=== PATIENT | female | born 1980 | race Two or more races ===

== ENCOUNTER 2017-07-16 16:59 | Emergency (ER) | payer MEDICAID ==
[~2017-07-16] VITALS: Ht 162.6 cm; Wt 93.4 kg
[2017-07-16 19:37] VITALS: BP 114/84
== END 2017-07-16 21:37 | disposition home or self-care (01) ==
LOC: ER 17:07
DX: M79.605 Pain in left leg (principal); M79.604 Pain in right leg; I10 Essential (primary) hypertension; E03.9 Hypothyroidism, unspecified
CPT/HCPCS: 72100

== ENCOUNTER 2017-08-11 12:55 | Emergency (ER) | payer MEDICAID ==
[~2017-08-11] VITALS: Ht 162.6 cm; Wt 93.9 kg
[2017-08-11 14:00] VITALS: BP 149/95
[2017-08-11] MEDS ORDERED: cefTRIAXone SOD 1,000 MG VL IM ONE (14:45)
== END 2017-08-11 15:00 | disposition home or self-care (01) ==
LOC: ER 12:58
DX: N39.0 Urinary tract infection, site not specified (principal); N76.0 Acute vaginitis; I10 Essential (primary) hypertension
CPT/HCPCS: 96372; 99283; J0696

== ENCOUNTER 2017-08-17 14:28 | Emergency (ER) | payer MEDICAID ==
[~2017-08-17] VITALS: Ht 162.6 cm; Wt 92.1 kg
[2017-08-17 14:30] VITALS: BP 159/108
== END 2017-08-17 17:41 | disposition home or self-care (01) ==
LOC: ER 14:28
DX: R51 Headache (principal); I10 Essential (primary) hypertension

== ENCOUNTER 2017-08-25 15:31 | Emergency (ER) | payer MEDICAID ==
[~2017-08-25] VITALS: Ht 162.6 cm; Wt 91.6 kg
[2017-08-25 16:24] LABS: Basophils # (auto) 0 uL; Basophils % (auto) 0.3 % (0.0-2.0); Eosinophils # (auto) 0.1 uL; Hematocrit 37.1 % (36.0-46.0); Hemoglobin 12.4 g/dL (12.2-16.2); Lymphocytes # (auto) 2.1 uL; Lymphocytes % (auto) 22.1 % (10.0-50.0); Mean Corpuscular Hgb Conc. 33.4 g/dL (32.0-36.0); Mean Corpuscular Volume 83.7 fL (80.0-100.0); Monocytes # (auto) 0.6 uL; Monocytes % (auto) 6.4 % (0.0-12.0); Neutrophils # (auto) 6.6 uL; Neutrophils % (auto) 70.2 % (37.0-80.0); Nucleated Red Blood Cells % 0.1 %; Platelet Count (auto) 331 10^3/uL (140-450); Red Blood Cells 4.44 10^6/uL (4.0-5.20); Red Cell Distribution Width 12.7 % (11.8-14.3); White Blood Cell 9.4 10^3/uL (4.4-10.8)
[2017-08-25 16:45] LABS: Albumin 3.9 g/dL (3.4-5.0); BUN/Creatinine Ratio 10.1; Bilirubin, Total 0.3 mg/dL (0.2-1.0); Calcium 9.4 mg/dL (8.5-10.1); Total Protein 8.1 g/dL (6.4-8.2)
[2017-08-25 17:12] LABS: Urine Bacteria FEW /hpf (None Seen); Urine Blood Negative /uL (Negative); Urine Specific Gravity 1.012 (1.001-1.035); Urine WBC <1 /hpf (0 - 5)
[2017-08-25 18:34] VITALS: BP 132/84
== END 2017-08-25 19:08 | disposition home or self-care (01) ==
LOC: ER 15:34
DX: R10.84 Generalized abdominal pain (principal); R11.2 Nausea with vomiting, unspecified; I10 Essential (primary) hypertension; E07.9 Disorder of thyroid, unspecified; Z98.51 Tubal ligation status
CPT/HCPCS: 36415; 74176; 80053; 81001; 82150; 83690; 85025

== ENCOUNTER 2017-12-15 14:27 | Emergency (ER) | payer MEDICAID ==
[~2017-12-15] VITALS: Ht 162.6 cm; Wt 96.2 kg
[2017-12-15 15:15] LABS: Basophils # (auto) 0 uL; Basophils % (auto) 0.3 % (0.0-2.0); Eosinophils # (auto) 0.1 uL; Eosinophils % (auto) 1.4 % (0.0-7.0); Hematocrit 38.9 % (36.0-46.0); Lymphocytes # (auto) 2.2 uL; Lymphocytes % (auto) 25.2 % (10.0-50.0); Mean Corpuscular Hemoglobin 28.1 pg (28.0-32.0); Mean Corpuscular Hgb Conc. 33.4 g/dL (32.0-36.0); Mean Corpuscular Volume 84.1 fL (80.0-100.0); Monocytes # (auto) 0.6 uL; Monocytes % (auto) 6.3 % (0.0-12.0); Neutrophils # (auto) 5.9 uL; Neutrophils % (auto) 66.8 % (37.0-80.0); Platelet Count (auto) 348 10^3/uL (140-450); Red Blood Cells 4.62 10^6/uL (4.0-5.20); Red Cell Distribution Width 13.7 % (11.8-14.3); White Blood Cell 8.9 10^3/uL (4.4-10.8)
[2017-12-15 15:35] LABS: Alanine Aminotransferase 27 U/L (13-56); Albumin 4.3 g/dL (3.4-5.0); Alkaline Phosphatase 103 U/L (45-117); Anion Gap 4 (5-15); Aspartate Aminotransferase 17 U/L (15-37); Bilirubin, Total 0.6 mg/dL (0.2-1.0); Blood Urea Nitrogen 8 mg/dL (7-18); Calcium 9.7 mg/dL (8.5-10.1); Carbon Dioxide 28 mmol/L (21-32); Chloride 104 mmol/L (98-107); GFR African American 104 mL/min; GFR Non-African American 86 mL/min; Glucose 77 mg/dL (74-106); Sodium 136 mmol/L (136-145)
[2017-12-15 16:02] VITALS: BP 134/92
== END 2017-12-15 16:09 | disposition home or self-care (01) ==
LOC: ER 14:28
DX: I16.0 Hypertensive urgency (principal); I10 Essential (primary) hypertension; F17.210 Nicotine dependence, cigarettes, uncomplicated; Z98.51 Tubal ligation status
CPT/HCPCS: 36415; 80053; 84484; 85025; 93005

== ENCOUNTER 2018-01-21 09:31 | Emergency (ER) | payer MEDICAID ==
[~2018-01-21] VITALS: Ht 162.6 cm; Wt 96.6 kg
[2018-01-21 10:15] LABS: Urine WBC None Seen /hpf (0 - 5)
[2018-01-21 10:30] LABS: Urine Bacteria FEW /hpf (None Seen); Urine Blood Negative /uL (Negative); Urine Specific Gravity 1.007 (1.001-1.035)
[2018-01-21] MEDS ORDERED: SODIUM CHLORIDE 0.9% 1,000 ML IVB ONE (11:06)
[2018-01-21 11:27] LABS: Basophils # (auto) 0 uL; Basophils % (auto) 0.5 % (0.0-2.0); Eosinophils # (auto) 0.1 uL; Eosinophils % (auto) 1.2 % (0.0-7.0); Hematocrit 39.1 % (36.0-46.0); Hemoglobin 12.8 g/dL (12.2-16.2); Lymphocytes # (auto) 1.7 uL; Lymphocytes % (auto) 19.8 % (10.0-50.0); Mean Corpuscular Hemoglobin 27.7 pg (28.0-32.0); Mean Corpuscular Hgb Conc. 32.9 g/dL (32.0-36.0); Mean Corpuscular Volume 84.4 fL (80.0-100.0); Monocytes # (auto) 0.4 uL; Monocytes % (auto) 5.1 % (0.0-12.0); Neutrophils # (auto) 6.3 uL; Neutrophils % (auto) 73.4 % (37.0-80.0); Platelet Count (auto) 350 10^3/uL (140-450); Red Blood Cells 4.63 10^6/uL (4.0-5.20); Red Cell Distribution Width 14.1 % (11.8-14.3); White Blood Cell 8.5 10^3/uL (4.4-10.8)
[2018-01-21 11:44] LABS: Albumin 4.3 g/dL (3.4-5.0); Calcium 9.5 mg/dL (8.5-10.1)
[2018-01-21 11:47] LABS: BUN/Creatinine Ratio 9.7; Bilirubin, Total 0.4 mg/dL (0.2-1.0); Total Protein 9.2 g/dL (6.4-8.2)
[2018-01-21 13:35] VITALS: BP 134/98
== END 2018-01-21 13:41 | disposition home or self-care (01) ==
LOC: ER 09:31
DX: K57.30 Diverticulosis of large intestine without perforation or abscess without bleeding (principal); I10 Essential (primary) hypertension; E07.89 Other specified disorders of thyroid; F17.210 Nicotine dependence, cigarettes, uncomplicated; Z98.51 Tubal ligation status
CPT/HCPCS: 36415; 74176; 80053; 81001; 81025; 85025; 94761; 96360

== ENCOUNTER 2018-01-28 08:19 | Emergency (ER) | payer MEDICAID ==
[~2018-01-28] VITALS: Ht 162.6 cm; Wt 93.4 kg
[2018-01-28] MEDS ORDERED: PANTOPRAZOLE 40 MG TAB PO ONE (09:15)
[2018-01-28 09:22] LABS: Urine Bacteria FEW /hpf (None Seen); Urine Blood TRACE /uL (Negative); Urine Mucus FEW (None Seen); Urine Specific Gravity 1.017 (1.001-1.035); Urine WBC 5 /hpf (0 - 5)
[2018-01-28 09:27] LABS: Basophils # (auto) 0 uL; Basophils % (auto) 0.5 % (0.0-2.0); Eosinophils # (auto) 0.1 uL; Eosinophils % (auto) 1.4 % (0.0-7.0); Hematocrit 35.8 % (36.0-46.0); Hemoglobin 11.9 g/dL (12.2-16.2); Lymphocytes # (auto) 1.1 uL; Lymphocytes % (auto) 13.7 % (10.0-50.0); Mean Corpuscular Hemoglobin 27.5 pg (28.0-32.0); Mean Corpuscular Hgb Conc. 33.2 g/dL (32.0-36.0); Mean Corpuscular Volume 82.9 fL (80.0-100.0); Monocytes # (auto) 0.4 uL; Monocytes % (auto) 5.6 % (0.0-12.0); Neutrophils # (auto) 6.2 uL; Neutrophils % (auto) 78.8 % (37.0-80.0); Platelet Count (auto) 330 10^3/uL (140-450); Red Blood Cells 4.31 10^6/uL (4.0-5.20); Red Cell Distribution Width 13.6 % (11.8-14.3); White Blood Cell 7.9 10^3/uL (4.4-10.8)
[2018-01-28 09:46] LABS: BUN/Creatinine Ratio 6.5; Calcium 8.9 mg/dL (8.5-10.1)
[2018-01-28 09:49] LABS: Bilirubin, Total 0.4 mg/dL (0.2-1.0)
[2018-01-28 10:31] VITALS: BP 136/95
== END 2018-01-28 10:42 | disposition home or self-care (01) ==
LOC: ER 08:26
DX: N39.0 Urinary tract infection, site not specified (principal); F17.210 Nicotine dependence, cigarettes, uncomplicated; I10 Essential (primary) hypertension; E07.89 Other specified disorders of thyroid
CPT/HCPCS: 36415; 80053; 81001; 81025; 85025; 94761

== ENCOUNTER 2018-02-25 09:44 | Emergency (ER) | payer MEDICAID ==
[~2018-02-25] VITALS: Ht 162.6 cm; Wt 86.2 kg
[2018-02-25 10:00] VITALS: BP 143/83
== END 2018-02-25 11:03 | disposition home or self-care (01) ==
LOC: ER 09:44
DX: S20.161A Insect bite (nonvenomous) of breast, right breast, initial encounter (principal); L08.9 Local infection of the skin and subcutaneous tissue, unspecified; I10 Essential (primary) hypertension; E07.89 Other specified disorders of thyroid; F17.210 Nicotine dependence, cigarettes, uncomplicated; W57.XXXA Bitten or stung by nonvenomous insect and other nonvenomous arthropods, initial encounter; Y93.89 Activity, other specified; Y99.8 Other external cause status; Y92.89 Other specified places as the place of occurrence of the external cause

== ENCOUNTER 2018-03-25 10:59 | Emergency (ER) | payer MEDICAID ==
[~2018-03-25] VITALS: Ht 165.1 cm; Wt 87.8 kg
[2018-03-25] MEDS ORDERED: IBU600T (11:31)
[2018-03-25] MEDS ORDERED: LISI-646 (11:31)
[2018-03-25] MEDS ORDERED: LEVO50TA7 (11:31)
[2018-03-25] MEDS ORDERED: MUPI2OIN2 (11:31)
[2018-03-25 12:05] LABS: Basophils # (auto) 0.1 uL; Eosinophils # (auto) 0.1 uL; Mean Corpuscular Hemoglobin 26.4 pg (28.0-32.0); Monocytes # (auto) 0.4 uL
[2018-03-25 12:07] LABS: Basophils % (auto) 0.6 % (0.0-2.0); Eosinophils % (auto) 1.4 % (0.0-7.0); Hematocrit 38.2 % (36.0-46.0); Hemoglobin 12.4 g/dL (12.2-16.2); Lymphocytes # (auto) 1.3 uL; Lymphocytes % (auto) 14.1 % (10.0-50.0); Mean Corpuscular Hgb Conc. 32.6 g/dL (32.0-36.0); Neutrophils # (auto) 7.5 uL; Neutrophils % (auto) 79.9 % (37.0-80.0); Platelet Count (auto) 350 10^3/uL (140-450); Red Blood Cells 4.71 10^6/uL (4.0-5.20); Red Cell Distribution Width 15.3 % (11.8-14.3); White Blood Cell 9.4 10^3/uL (4.4-10.8)
[2018-03-25 12:22] LABS: Urine Pregnacy Test Negative (Negative)
[2018-03-25 12:22] LABS: Albumin 4.2 g/dL (3.4-5.0); Calcium 9.2 mg/dL (8.5-10.1); Potassium 3.8 mmol/L (3.5-5.1)
[2018-03-25 12:24] LABS: Urine Amorphous Crystal FEW /hpf (None Seen); Urine Bacteria NONE SEEN /hpf (None Seen); Urine Blood 2+ /uL (Negative); Urine Specific Gravity 1.002 (1.001-1.035); Urine WBC <1 /hpf (0 - 5)
[2018-03-25 12:25] LABS: BUN/Creatinine Ratio 11.1; Bilirubin, Total 0.4 mg/dL (0.2-1.0); Total Protein 8.5 g/dL (6.4-8.2)
[2018-03-25 12:53] LABS: Alcohol, Urine < 3.0 mg/dL (0-5); Amphetamine Screen, Urine NEGATIVE (NEGATIVE); Barbiturate Scree,Urine NEGATIVE (NEGATIVE); Benzodiazephine Screen, Urine NEGATIVE (NEGATIVE); Cannabinoid Screen, Urine NEGATIVE (NEGATIVE); Cocaine Screen, Urine NEGATIVE (NEGATIVE); Opiate Scree,Urine NEGATIVE (NEGATIVE); Phencyclidine Screen, Urine NEGATIVE (NEGATIVE)
[2018-03-25 15:25] VITALS: BP 132/89
== END 2018-03-25 15:27 | disposition home or self-care (01) ==
LOC: ER 10:59
DX: K29.70 Gastritis, unspecified, without bleeding (principal); K76.0 Fatty (change of) liver, not elsewhere classified; I10 Essential (primary) hypertension; E07.9 Disorder of thyroid, unspecified; F17.210 Nicotine dependence, cigarettes, uncomplicated; Z98.51 Tubal ligation status; Z79.899 Other long term (current) drug therapy
CPT/HCPCS: 36415; 76705; 80053; 80307; 81001; 81025; 82150; 83690; 85025

== ENCOUNTER 2018-07-23 09:04 | Emergency (ER) | payer MEDICAID ==
[~2018-07-23] VITALS: Ht 162.6 cm; Wt 82.6 kg
[~2018-07-23 09:04] MED LIST: IBU600T; LEVO50TA7; LISI-646; MUPI2OIN2
[2018-07-23] MEDS ORDERED: IBUPROFEN 600 MG TAB PO ONE (09:15)
[2018-07-23 09:16] VITALS: BP 123/73
[2018-07-23] MEDS ORDERED: KETOROLAC TROMETH 60MG/2ML VIAL IM ONE (09:45)
[2018-07-23] MEDS ORDERED: ACETAMINOPHEN 325 MG TAB PO ONE (10:00)
== END 2018-07-23 11:00 | disposition home or self-care (01) ==
LOC: ER 09:08
DX: S80.02XA Contusion of left knee, initial encounter (principal); I10 Essential (primary) hypertension; F17.210 Nicotine dependence, cigarettes, uncomplicated; Z79.899 Other long term (current) drug therapy; W01.198A Fall on same level from slipping, tripping and stumbling with subsequent striking against other object, initial encounter; Y93.89 Activity, other specified; Y99.8 Other external cause status
CPT/HCPCS: 73562

== ENCOUNTER 2019-03-18 21:19 | Emergency (ER) | payer MEDICAID ==
[~2019-03-18] VITALS: Ht 165.1 cm; Wt 83.5 kg
[2019-03-18 21:25] VITALS: BP 146/72
[2019-03-18 22:09] LABS: Urine Bacteria MOD /hpf (None Seen); Urine Blood Negative /uL (Negative); Urine Mucus FEW (None Seen); Urine Specific Gravity 1.018 (1.001-1.035); Urine WBC 1 /hpf (0 - 5)
[2019-03-18 23:07] LABS: Basophils # (auto) 0 uL; Basophils % (auto) 0.5 % (0.0-2.0); Eosinophils # (auto) 0.2 uL; Eosinophils % (auto) 2.5 % (0.0-7.0); Hematocrit 36.6 % (36.0-46.0); Hemoglobin 12.3 g/dL (12.2-16.2); Lymphocytes # (auto) 2.2 uL; Lymphocytes % (auto) 25.3 % (10.0-50.0); Mean Corpuscular Hemoglobin 29.6 pg (28.0-32.0); Mean Corpuscular Hgb Conc. 33.6 g/dL (32.0-36.0); Monocytes # (auto) 0.7 uL; Monocytes % (auto) 7.9 % (0.0-12.0); Neutrophils # (auto) 5.6 uL; Neutrophils % (auto) 63.8 % (37.0-80.0); Platelet Count (auto) 288 10^3/uL (140-450); Red Blood Cells 4.16 10^6/uL (4.0-5.20); Red Cell Distribution Width 14.7 % (11.8-14.3); White Blood Cell 8.7 10^3/uL (4.4-10.8)
[2019-03-18 23:21] LABS: Alanine Aminotransferase 19 U/L (13-56); Albumin 3.7 g/dL (3.4-5.0); Anion Gap 7 (5-15); Aspartate Aminotransferase 12 U/L (15-37); BUN/Creatinine Ratio 21.4; Blood Urea Nitrogen 18 mg/dL (7-18); Calcium 8.9 mg/dL (8.5-10.1); Carbon Dioxide 25 mmol/L (21-32); Chloride 106 mmol/L (98-107); GFR African American 98 mL/min; GFR Non-African American 81 mL/min; Glucose 102 mg/dL (74-106); Potassium 3.8 mmol/L (3.5-5.1); Sodium 138 mmol/L (136-145)
[2019-03-18 23:26] LABS: Alkaline Phosphatase 69 U/L (45-117); Bilirubin, Total 0.3 mg/dL (0.2-1.0); Total Protein 7.5 g/dL (6.4-8.2)
== END 2019-03-19 | disposition left against medical advice (07) ==
LOC: ER 21:19
DX: R07.89 Other chest pain (principal); Z53.21 Procedure and treatment not carried out due to patient leaving prior to being seen by health care provider
CPT/HCPCS: 36415; 70450; 80053; 81001; 84484; 85025; 93005

== ENCOUNTER 2019-04-13 12:20 | Emergency (ER) | payer MEDICAID ==
[~2019-04-13] VITALS: Ht 162.6 cm; Wt 90.7 kg
[2019-04-13 12:39] VITALS: BP 115/71
== END 2019-04-13 15:15 | disposition home or self-care (01) ==
LOC: ER 12:20
DX: M54.6 Pain in thoracic spine (principal); I10 Essential (primary) hypertension; F17.210 Nicotine dependence, cigarettes, uncomplicated; Z79.899 Other long term (current) drug therapy

== ENCOUNTER 2024-10-11 19:47 | Emergency (ER) | payer MEDICAID ==
[~2024-10-11] VITALS: Ht 165.1 cm; Wt 86.3 kg
[~2024-10-11 19:47] MED LIST changes: -IBU600T; +IBUP1TAB5; -LISI-646; +LISI20TA56
--- NOTE | 2024-10-11 19:57 | ED.PDOC ---
History of Present Illness HPI Comments 43-year-old female brought in by EMS presents with a chief complaint of pre- syncope, constipation, and urinary retention. Patient states that she almost had a syncopal episode, but did not fully lose consciousness. Patient was caught by her friend and did not hit her head. Patient reports that she has not had a bowel movement or urinated for x 1 week. Patient mentions that she is able to pass gas. Patient endorses using methamphetamine, marijuana, cigarettes, and alcohol use. Last time she used was this morning. No fall or trauma. No real syncope it maybe near-syncope. PMHx: HTN, Hypothyroidism, UTIs PSHx: , Tubal Ligation HPI: Poor Historian. REVIEW OF SYSTEMS: CONSTITUTIONAL: Denies acute: fever, diaphoresis, chills, HEAD: Denies acute: headache, photophobia Eyes: Denies acute: Double vision, vision loss, eye pain, eye discharge. EARS: Denies acute: tinnitus, hearing loss, ear discharge, ear pain, THROAT: Denies acute: sore throat, swelling, difficulty swallowing , pain with swallowing, change in voice. Obese NECK: Denies acute: neck pain, neck swelling, stiff neck. HEART: Denies acute : chest pain, palpitations, LUNGS: Denies acute: SOB, wheezing, cough, hemoptysis ABDOMEN: Denies acute: Nausea, Vomiting, diarrhea, melena , hematemesis, hematochezia SKIN: Denies acute: rash, redness, lesions, itchiness. EXTREMITIES: Denies acute: calf pain, numbness, tingling, weakness, denies pain in extremity. Denies acute: Low back pain. Neuro: Denies acute: focal neurological deficit, motor or sensory focal neurological deficit, tremors, seizure like activity, confusion, change in mental status, loss of bowel or bladder function, cauda equina like symptoms. : Denies acute: dysuria, hematuria, flank pain, increase in urinary frequency. PSYCH: Denies acute: hallucination, suicidal ideation, homicidal ideation. FEMALE: Denies acute: abnormal vaginal bleeding, foul odor, unusual discharge. Currently on her menstrual cycle PHYSICAL EXAM: General: ----mild----acute distress, awake and alert. Head: normocephalic, atraumatic. Neck: supple, trachea is midline, no swelling. Throat: Normal phonation. Eyes:, no erythema, no purulent discharge, no proptosis, no icterus. Heart: regular rate, regular rhythm, no significant murmur appreciated. Lungs: no apparent respiratory distress, Able to speak in full sentences. No wheezing, no rhonchi, no crackles. No stridors Clear to auscultation bilaterally. Abdomen: non tender to palpation, non distended, soft, no guarding, no rebound, + bowel sounds. Neuro: Awake, Alert, oriented to name, self, situation, follows commands GCS=15. Speech is normal. Skin: no petechia, no purpura, no cyanosis, non-pale, not jaundice. Lower extremities: --no - Pitting edema no deformity, no focal swelling, no calf TTP. Makes eye contact. moves all four extremities. Face: no apparent facial droop. ED COURSE: DISCLAIMER: This medical document was created using an electronic medical record system with voice recognition software and computerized dictation system. Although this document has been carefully reviewed, there might still be some phonetic and typographical errors. Occasional wrong-word or "sound-alike" substitutions may have occurred due to the inherent limitations of voice recognition software. These areas are purely typographical due to imperfections of the software programs and do not reflect any compromise in the patient's medical care. Please read the chart carefully and recognize, using context, where these substitutions have occurred. Time Seen by MD: 19:48 Primary Care Provider: LAYLA Reviewed Notes: Medications, Allergies Allergies: Coded Allergies: No Known Drug Allergy (Verified Allergy, Unknown, 10/11/24) Home Meds Reported Medications Mupirocin (Pseudomonas Fluores (Mupirocin) 2 % Oin 03/25/18 Ibuprofen Micronized (Ibuprofen) 600 Mg Tab 03/25/18 Lisinopril (Lisinopril) 20 Mg Tab 03/25/18 Levothyroxine Sodium (Levothyroxine Sodium) 50 Mcg Tab 03/25/18 Information Source: Patient, Emergency Med Personnel Past Medical History PAST MEDICAL HISTORY: HTN, Thyroid, UTI'S Surgical History: , Tubal Ligation Family History Family History: No family hx of HTN Social History Smoker: Cigarettes, Less Than 1 Pack/Day Alcohol: Occasionally Drugs: Marijuana, Methamphetamine Lives In: Home Was a procedure done? Was a procedure done?: No X-Ray, Labs, Meds, VS Vital Signs Date Time Temp Pulse Resp B/P (MAP) Pulse Ox O2 Delivery O2 Flow Rate FiO2 10/11/24 20:41 Room Air* 0 21 10/11/24 20:41 97.5 90 18 162/90 (114) 98 97.5 10/11/24 20:00 97.9 101 20 155/85 (108) 98 97.9 10/11/24 19:54 103 Lab Test 10/11/24 20:56 10/11/24 20:01 Range/Units Urine Color Light-yellow Yellow Urine Clarity Turbid H Clear Urine pH 6.0 5.0-9.0 Urine Specific [place] 1.019 1.001-1.035 Urine Protein Negative Negative Urine Ketones Negative Negative Urine Blood Negative Negative /uL Urine Nitrite 2+ H Negative Urine Bilirubin Negative Negative Urine Urobilinogen Normal Negative mg/dL Urine Leukocyte Esterase 3+ Negative /uL Urine RBC 3 0 - 4 /hpf Urine Microscopic WBC 115 H 0-5 /HPF Urine Squamous Epithelial Cells Few <5 /hpf Urine Bacteria Few H None Seen /hpf Urine Mucus Few None Seen Urine Glucose Normal Normal mg/dL Urine Test Negative Negative Troponin I High Sensitivity 4 4 </=34 ng/L Urine Opiates Screen Pending Urine Fentanyl Screen Pending Urine Barbiturates Screen Pending Urine Phencyclidine Screen Pending Urine Amphetamines Screen Pending Urine Benzodiazepines Screen Pending Urine Cocaine Screen Pending Urine Cannabinoids Screen Pending White Blood Count 6.8 4.4-10.8 10^3/uL Red Blood Count 4.64 4.0-5.20 10^6/uL Hemoglobin 11.7 L 12.2-16.2 g/dL Hematocrit 36.1 36.0-46.0 % Mean Corpuscular Volume 77.8 L 80.0-100.0 fL Mean Corpuscular Hemoglobin 25.3 L 28.0-32.0 pg Mean Corpuscular Hemoglobin Concent 32.5 32.0-36.0 g/dL Red Cell Distribution Width 17.4 H 11.8-14.3 % Platelet Count 433 140-450 10^3/uL Mean Platelet Volume 6.9 6.9-10.8 fL Neutrophils (%) (Auto) 51.7 37.0-80.0 % Lymphocytes (%) (Auto) 37.5 10.0-50.0 % Monocytes (%) (Auto) 6.8 0.0-12.0 % Eosinophils (%) (Auto) 3.2 0.0-7.0 % Basophils (%) (Auto) 0.8 0.0-2.0 % Neutrophils # (Auto) 3.5 1.6-8.6 10 ^3/uL Lymphocytes # (Auto) 2.6 0.4-5.4 10 ^3/uL Monocytes # (Auto) 0.5 0-1.3 10 ^3/uL Eosinophils # (Auto) 0.2 0-0.8 10 ^3/uL Basophils # (Auto) 0.1 0-0.2 10 ^3/uL Nucleated Red Blood Cells 0.0 % Sodium Level 141 136-145 mmol/L Potassium Level 3.5 3.5-5.1 mmol/L Chloride Level 105 98-107 mmol/L Carbon Dioxide Level 29 20-31 mmol/L Anion Gap 7 5-15 Blood Urea Nitrogen 9 9-23 mg/dL Creatinine 0.99 0.550-1.02 mg/dL Glomerular Filtration Rate Calc 73 >90 mL/min BUN/Creatinine Ratio 9.1 L 10.0-20.0 Serum Glucose 116 H 74-106 mg/dL Lactic Acid Level 1.7 0.4-2.0 mmol/L Calcium Level 11.1 H 8.7-10.4 mg/dL Magnesium Level 2.1 1.6-2.6 mg/dL Total Bilirubin 0.3 0.2-1.0 mg/dL Aspartate Amino Transferase (AST) 16 13-40 U/L Alanine Aminotransferase (ALT) 11 7-40 U/L Alkaline Phosphatase 98 46-116 U/L B-Type Natriuretic Peptide 12.86 0-100 pg/mL Total Protein 7.4 5.7-8.2 g/dL Albumin 4.8 3.2-4.8 g/dL Current Medications Medications (Trade) Dose Ordered Sig/Jeb Route Start Time Stop Time Status Last Admin Sodium Chloride 1,000 ml @ 1,000 mls/hr Q1H ONCE IV 10/11/24 20:00 10/11/24 20:59 DC 10/11/24 20:40 Sodium Chloride 1,000 ml @ 1,000 mls/hr Q1H ONCE IV 10/11/24 20:45 10/11/24 21:44 DC 10/11/24 20:45 [place] [id number] Ph: [phone] DIAGNOSTIC IMAGING Diagnostic Imaging Report : [id number] Signed PATIENT: MANOHAR LEONARDO ACCT: [id number] UNIT: [id number] : 1980 LOC: ER ROOM / BED: / AGE / SEX: 43 / F ADM STATUS: REG ER SERVICE 51 ORDERING PHYSICIAN: IZABELLA MALIK DO PROCEDURE(s): CXRP - CHEST PORTABLE REASON: near syncope ORDER NUMBER(s): [id number], ACCESSION NUMBER(s): [id number] CHEST RADIOGRAPH Indication: near syncope Technique: Single frontal view of the chest was obtained Comparison: None FINDINGS: Lines and Tubes: None Lungs: No focal consolidation. Pleura: No effusion. No pneumothorax. Cardiomediastinal contours: Unremarkable Bones: No acute osseous abnormality. IMPRESSION: 1. No acute cardiopulmonary disease. ATED BY: AMY VERDUZCO Jr., DO DICTATED DATE/TIME: 10/11/242040 SIGNED BY: AMY VERDUZCO Jr., SIGNED DATE/TIME: 10/11/242040 [place] [address] Ph: [phone] DIAGNOSTIC IMAGING Diagnostic Imaging Report : [id number] Signed PATIENT: MANOHAR LEONARDO ACCT: [id number] UNIT: [id number] : 1980 LOC: ER ROOM / BED: / AGE / SEX: 43 / F ADM STATUS: REG ER SERVICE 51 ORDERING PHYSICIAN: IZABELLA MALIK DO PROCEDURE(s): ABPL - CT AB PEL WO CON-NO ORAL OR IV REASON: constipation ORDER NUMBER(s): [id number], ACCESSION NUMBER(s): [id number] Exam: CT CT AB PEL WO CON-NO ORAL OR IV History: constipation Comparison Study: None TECHNIQUE: Multidetector CT of the abdomen was performed from lung bases to pubic symphysis. Imaging was performed without IV contrast. Axial, coronal and sagittal multiplanar reformats were obtained from the axial data set by the technologist. Radiation Dose Information: CT Dose: CTDI volume is 9.02 mGy. Dose-length product is 546.39 mGy*cm FINDINGS: Evaluation of solid organs is limited due to lack of intravenous contrast use. Findings: Lung Bases: No acute or significant lung base finding. Normal heart size. No pleural or pericardial effusion. Liver: The liver is normal in size. No focal lesions. Gallbladder and Biliary Tree: Gallstones Spleen: Unremarkable Pancreas: The pancreas is grossly normal in appearance. Adrenal Glands: Unremarkable Kidneys: Kidneys are grossly normal without calculi or hydronephrosis. Bladder: Grossly unremarkable for degree of distention. Bowel: The stomach is grossly normal in appearance. Small bowel and colon are normal in caliber and distribution. The appendix is not visualized; however, no secondary findings of acute appendicitis identified. Ascites: Absent Lymphadenopathy: No mesenteric, retroperitoneal or periportal lymphadenopathy. Abdominal Wall and Mesentery: Unremarkable. Vasculature: The visualized abdominal aorta is normal in size and caliber. Evaluation of abdominal and pelvic vessels is limited due to lack of intravenous contrast. Pelvic Organs: Unremarkable Musculoskeletal: No aggressive focal bony lesions, acute fractures or dislocation. Soft tissues: Unremarkable IMPRESSION: 1. Gallstones 2. Tampon in the vagina. Radiation optimization: All CT scans at this facility use at least one of these dose optimization techniques: automated exposure control mA and/or kV adjustment per patient size (includes targeted exams where dose is matched to clinical indication) or iterative reconstruction. ATED BY: AMY VERDUZCO Jr., DO DICTATED DATE/TIME: 10/11/242055 SIGNED BY: AMY VERDUZCO Jr., SIGNED DATE/TIME: 10/11/242055 Time of 1ST Reevaluation: 20:18 Reevaluation 1ST: Unchanged Time of 2ND Reevaluation: 22:42 Reevaluation 2ND: Improved Patient Education/Counseling: Diagnosis, Treatment Family Education/Counseling: No Family Present Comments Departure 1 Departure Time of Disposition: 21:42 Impression: Primary Impression: Abnormality on patient-activated cardiac event recorder Additional Impressions: Constipation Methamphetamine abuse Alcohol abuse Near syncope Marijuana abuse Urinary tract infection Disposition: 01 HOME / SELF CARE / HOMELESS Condition: Stable Additional Instructions: Additional instructions: You MUST follow-up with your primary care/family doctor in 1 to 2 days. If you are unable to see your primary care/family doctor, please return to our emergency room for re-assessment and re-evaluation in 1 to 2 days. Return to the emergency room here in our facility or to the nearest ER [facility] if your symptoms change or worsen. CONSULTATIONS: you MUST Follow-up for consultation as soon as possible with: -gastroenterology and OB Gyne doctor as needed in 1-2 days. Please call for appointment. You MUST call the consultants office yourself to make an appointment. You may need to arrange that through your insurance and/or your primary/family doctor. If you are unable to see the clinical operations consultant in 1 to 2 days, you must return to our emergency room (or any other ER of your choice) for re-assessment and re- evaluation. Adequate fluid hydration. Increase fiber intake. Avoid all drugs and alcohol. Below is a copy of your radiological report for follow up: [place] [address] Ph: [phone] DIAGNOSTIC IMAGING Diagnostic Imaging Report : [id number] Signed PATIENT: MANOHAR LEONARDO ACCT: [id number] UNIT: [id number] : 1980 LOC: ER ROOM / BED: / AGE / SEX: 43 / F ADM STATUS: REG ER SERVICE 51 ORDERING PHYSICIAN: IZABELLA MALIK DO PROCEDURE(s): ABPL - CT AB PEL WO CON-NO ORAL OR IV REASON: constipation ORDER NUMBER(s): [id number], ACCESSION NUMBER(s): [id number] Exam: CT CT AB PEL WO CON-NO ORAL OR IV History: constipation Comparison Study: None TECHNIQUE: Multidetector CT of the abdomen was performed from lung bases to pubic symphysis. Imaging was performed without IV contrast. Axial, coronal and sagittal multiplanar reformats were obtained from the axial data set by the technologist. Radiation Dose Information: CT Dose: CTDI volume is 9.02 mGy. Dose-length product is 546.39 mGy*cm FINDINGS: Evaluation of solid organs is limited due to lack of intravenous contrast use. Findings: Lung Bases: No acute or significant lung base finding. Normal heart size. No pleural or pericardial effusion. Liver: The liver is normal in size. No focal lesions. Gallbladder and Biliary Tree: Gallstones Spleen: Unremarkable Pancreas: The pancreas is grossly normal in appearance. Adrenal Glands: Unremarkable Kidneys: Kidneys are grossly normal without calculi or hydronephrosis. Bladder: Grossly unremarkable for degree of distention. Bowel: The stomach is grossly normal in appearance. Small bowel and colon are normal in caliber and distribution. The appendix is not visualized; however, no secondary findings of acute appendicitis identified. Ascites: Absent Lymphadenopathy: No mesenteric, retroperitoneal or periportal lymphadenopathy. Abdominal Wall and Mesentery: Unremarkable. Vasculature: The visualized abdominal aorta is normal in size and caliber. Evaluation of abdominal and pelvic vessels is limited due to lack of intravenous contrast. Pelvic Organs: Unremarkable Musculoskeletal: No aggressive focal bony lesions, acute fractures or dislocation. Soft tissues: Unremarkable IMPRESSION: 1. Gallstones 2. Tampon in the vagina. . Radiation optimization: All CT scans at this facility use at least one of these dose optimization techniques: automated exposure control mA and/or kV adjustment per patient size (includes targeted exams where dose is matched to clinical indication) or iterative reconstruction. ATED BY: AMY VERDUZCO Jr., DO DICTATED DATE/TIME: 10/11/242055 SIGNED BY: AMY VERDUZCO Jr., SIGNED DATE/TIME: 10/11/242055 CC: e-Prescriptions Nitrofurantoin Monohydrate Mac (Macrobid) 100 Mg Cap 100 MG PO BID for 7 Days, #14 CAP Prov: IZABELLA MALIK DO 10/11/24 Discharged With: Self Critical Care Note Critical Care Time?: No I personally scribed for IZABELLA MALIK DO ([email or web address]) on 10/11/24 at 19:57. Electronically submitted by Josh Velasco ([email or web address]). I personally scribed for IZABELLA MALIK DO ([email or web address]) on 10/11/24 at 21:17. Electronically submitted by Josh Velasco ([email or web address]). I personally scribed for IZABELLA MALIK DO ([email or web address]) on 10/11/24 at 21:44. Electronically submitted by Josh Velasco ([email or web address]). IZABELLA MALIK DO Oct 11, 2024 19:57
[2024-10-11 20:16] LABS: Hematocrit 36.1 % (36.0-46.0); Hemoglobin 11.7 g/dL (12.2-16.2); Mean Corpuscular Hemoglobin 25.3 pg (28.0-32.0); Mean Corpuscular Volume 77.8 fL (80.0-100.0); Nucleated Red Blood Cells % 0.0 %
[2024-10-11 20:33] LABS: Alanine Aminotransferase 11 U/L (7-40); Albumin 4.8 g/dL (3.2-4.8); Alkaline Phosphatase 98 U/L (46-116); Anion Gap 7 (5-15); BUN/Creatinine Ratio 9.1 (10.0-20.0); Blood Urea Nitrogen 9 mg/dL (9-23); Calcium 11.1 mg/dL (8.7-10.4); Carbon Dioxide 29 mmol/L (20-31); Chloride 105 mmol/L (98-107); Glucose 116 mg/dL (74-106); Magnesium 2.1 mg/dL (1.6-2.6); Potassium 3.5 mmol/L (3.5-5.1); Sodium 141 mmol/L (136-145); Total Protein 7.4 g/dL (5.7-8.2)
[2024-10-11 20:34] LABS: Bilirubin, Total 0.3 mg/dL (0.2-1.0)
[2024-10-11] MEDS: SODIUM CHLORIDE 0.9% 1,000 ML IV ONE ×2 (20:40→20:45)
--- NOTE | 2024-10-11 20:43 | DVH ---
CHEST RADIOGRAPH Indication: near syncope Technique: Single frontal view of the chest was obtained Comparison: None FINDINGS: Lines and Tubes: None Lungs: No focal consolidation. Pleura: No effusion. No pneumothorax. Cardiomediastinal contours: Unremarkable Bones: No acute osseous abnormality. IMPRESSION: 1. No acute cardiopulmonary disease.
--- NOTE | 2024-10-11 20:59 | DVH ---
Exam: CT CT AB PEL WO CON-NO ORAL OR IV History: constipation Comparison Study: None TECHNIQUE: Multidetector CT of the abdomen was performed from lung bases to pubic symphysis. Imaging was performed without IV contrast. Axial, coronal and sagittal multiplanar reformats were obtained fr om the axial data set by the technologist. Radiation Dose Information: CT Dose: CTDI volume is 9.02 mGy. Dose-length product is 546.39 mGy*cm FINDINGS: Evaluation of solid organs is limited due to lack of intravenous contrast use. Findings: Lung Bases: No acute or significant lung base finding. Normal heart size. No pleural or pericardial effusion. Liver: The liver is normal in size. No focal lesions. Gallbladder and Biliary Tree: Gallstones Spleen: Unremarkable Pancreas: The pancreas is grossly normal in appearance. Adrenal Glands: Unremarkable Kidneys: Kidneys are grossly normal without calculi or hydronephrosis. Bladder: Grossly unremarkable for degree of distention. Bowel: The stomach is grossly normal in appearance. Small bowel and colon are normal in caliber and d istribution. The appendix is not visualized; however, no secondary findings of acute appendicitis id entified. Ascites: Absent Lymphadenopathy: No mesenteric, retroperitoneal or periportal lymphadenopathy. Abdominal Wall and Mesentery: Unremarkable. Vasculature: The visualized abdominal aorta is normal in size and caliber. Evaluation of abdominal a nd pelvic vessels is limited due to lack of intravenous contrast. Pelvic Organs: Unremarkable Musculoskeletal: No aggressive focal bony lesions, acute fractures or dislocation. Soft tissues: Unremarkable IMPRESSION: 1. Gallstones 2. Tampon in the vagina. . Radiation optimization: All CT scans at this facility use at least one of these dose optimization brayan hniques: automated exposure control mA and/or kV adjustment per patient size (includes targeted exam s where dose is matched to clinical indication) or iterative reconstruction.
[2024-10-11 22:34] LABS: Urine Protein, UAD Negative (Negative)
[2024-10-11] MEDS ORDERED: NITR-87 PO (22:42)
[2024-10-11 22:43] LABS: Amphetamine Screen, Urine Pos (NEGATIVE); Barbiturate Scree,Urine Neg (NEGATIVE); Benzodiazephine Screen, Urine Neg (NEGATIVE); Cannabinoid Screen, Urine Pos (NEGATIVE); Cocaine Screen, Urine Neg (NEGATIVE); Opiate Scree,Urine Neg (NEGATIVE); Phencyclidine Screen, Urine Pos (NEGATIVE)
[2024-10-11 22:59] VITALS: BP 143/86; PULSE 87; RESP 18; TEMP 97.7; O2SAT 98
--- NOTE | 2024-10-12 07:25 | ECG ---
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
== END 2024-10-11 23:36 | disposition home or self-care (01) ==
LOC: EDBD 19:47 → ER 19:47
DX: N39.0 Urinary tract infection, site not specified (principal); K59.00 Constipation, unspecified; R93.1 Abnormal findings on diagnostic imaging of heart and coronary circulation; R55 Syncope and collapse; F15.10 Other stimulant abuse, uncomplicated; F12.10 Cannabis abuse, uncomplicated; F10.10 Alcohol abuse, uncomplicated; I10 Essential (primary) hypertension; F17.210 Nicotine dependence, cigarettes, uncomplicated; E03.9 Hypothyroidism, unspecified; Z87.440 Personal history of urinary (tract) infections; Z98.51 Tubal ligation status; Z79.899 Other long term (current) drug therapy; Y90.9 Presence of alcohol in blood, level not specified
CPT/HCPCS: 36415; 71045; 74176; 80053; 80307; 81001; 81025; 82947; 83605; 83735; 83880; 84484; 85025; 93005; 96360; 99285; J7030